=== PATIENT | female | born 1995 | race Caucasian/White ===

== ENCOUNTER 2017-08-18 00:15 | Inpatient (IN) | payer OTHER ==
[~2017-08-18] VITALS: Ht 152.4 cm; Wt 42.6 kg
--- NOTE | 2017-08-18 00:15 | NUR ---
TO BED 2 BIB PARAMEDICS C/O N/V, SYNCOPE. RECEIVE PT AAOX4 NO ACUTE DISTRESS NOTED, RESP EVEN AND UNLABORED. NOTED FOREHEAD ABRASION. PLACE PT ON CARDIAC MONITORING, CONTINUOUS POX. PENDING ER MD SAUL.
[2017-08-18] MEDS ORDERED: ONDANSETRON HCL/PF 4 MG/2 ML VIAL ONE ×3 (00:35→06:14)
[2017-08-18 00:57] LABS: BASOPHILS % (AUTO) 0.1 % (0.0-2.0); EOSINOPHILS # (AUTO) 0.1 /CMM (0.0-0.7); EOSINOPHILS % (AUTO) 0.5 % (0.0-6.0); HEMATOCRIT 43 % (33-45); HEMOGLOBIN 14.6 g/dL (11.5-14.8); LYMPHOCYTES # (AUTO) 1.4 /CMM (0.8-4.8); LYMPHOCYTES % (AUTO) 9.3 % (20.0-44.0); MEAN CORPUSCULAR HEMOGLOBIN 32 PG (26.0-33.0); MEAN CORPUSCULAR HGB CONC 34 g/dl (31.0-36.0); MEAN CORPUSCULAR VOLUME 95 fL (82-100); MONOCYTES % (AUTO) 6.5 % (2.0-12.0); NEUTROPHILS # (AUTO) 12.9 /CMM (1.8-8.9); NEUTROPHILS % (AUTO) 83.6 % (43.0-81.0); PLATELET COUNT (AUTO) 218 /CMM (150-450); RDW COEFFICIENT OF VARIATION 12.7 (11.5-15.0); RED BLOOD CELL COUNT(AUTO) 4.54 MIL/uL (4.0-5.2); WHITE BLOOD COUNT (AUTO) 15.4 K/uL (4.3-11.0)
[2017-08-18] MEDS ORDERED: ONDANSETRON HCL/PF 4 MG/2 ML VIAL IVP ONE (01:00)
[2017-08-18] MEDS ORDERED: IV NS 0.9% 1,000 ML BAG IV ONE (01:00)
[2017-08-18 01:08] LABS: CALCIUM, SERUM 8.5 mg/dL (8.5-10.1); CREATININE 0.8 mg/dL (0.6-1.3); POTASSIUM 4.4 mmol/L (3.5-5.1)
--- NOTE | 2017-08-18 01:16 | NUR ---
pt ambulatory to the bathroom with steady gait noted.
[2017-08-18 01:34] LABS: APPEARANCE,URINE CLEAR (CLEAR); BILIRUBIN,URINE NEGATIVE (NEGATIVE); BLOOD, URINE NEGATIVE Ery/uL (NEGATIVE); COLOR,URINE YELLOW (YELLOW); KETONES,URINE NEGATIVE (NEGATIVE); LEUKOCYTE ESTERASE ,URINE NEGATIVE (NEGATIVE); NITRITE, URINE NEGATIVE (NEGATIVE); PROTEIN,URINE NEGATIVE (NEGATIVE); UGLUCOSE NEGATIVE (NEGATIVE); UROBILINOGEN,URINE 0.2 EU/dL (0.2)
[2017-08-18] MEDS ORDERED: ONDANSETRON HCL/PF 4 MG/2 ML VIAL IV ONE (02:00)
[2017-08-18] MEDS ORDERED: METOCLOPRAMIDE HCL 10 MG/2 ML VIAL ONE (02:24)
[2017-08-18] MEDS ORDERED: METOCLOPRAMIDE HCL 10 MG/2 ML VIAL IV ONE (02:30)
--- NOTE | 2017-08-18 02:37 | NUR ---
M/S 116-2
--- NOTE | 2017-08-18 02:50 | NUR ---
RN INITIAL ASSESSMENT RECEIEVED PATIENT REPORT FROM ED FROM ER. RECEIEVED PATIENT, PATIENT CAME AMBULATORY WALKED IN THE UNIT WITH FAMILY. ADMITTED WITH A DIAGNOSIS OF INTRACTABLE VOMITTING. PATIENT IS ALERT AND ORIENTED X 4 WITH NO SIGNS OF DISTRESS. PATIENT DENIES PAIN. COMPLAINED OF NAUSEA WITH NO EMESIS. NOTED HEPLOCK ON LEFT AC PATENT AND INTACT, FLUSHES WITH NO DIFFICULTY. CALL LIGHT WITHIN REACH. ORIENTED TO THE UNIT AND STAFF. PROVIDED EDUCATION REGARDING DISEASE PROCESS.
--- NOTE | 2017-08-18 03:00 | NUR ---
report called to M/S BARBRA [facility]. pending hospital admission.
--- NOTE | 2017-08-18 03:18 | NUR ---
er spoke to dr. stuart regarding pt admission.
[2017-08-18 03:20] VITALS: BP 99/59
[2017-08-18] MEDS ORDERED: IV D5/ 0.9% NACL 1,000 ML IV PRN (06:00)
[2017-08-18] MEDS ORDERED: ACETAMINOPHEN 650 MG/SUPP.RECT RC PRN (06:00)
[2017-08-18] MEDS ORDERED: HYDROMORPHONE INJ 2 MG/ML DISP.SYRIN IV PRN (06:00)
[2017-08-18] MEDS ORDERED: ONDANSETRON HCL/PF 4 MG/2 ML VIAL IVP PRN (06:00)
[2017-08-18 07:14] LABS: EOSINOPHILS % (AUTO) 0.1 % (0.0-6.0); HEMATOCRIT 43 % (33-45); HEMOGLOBIN 14.4 g/dL (11.5-14.8); LYMPHOCYTES # (AUTO) 0.3 /CMM (0.8-4.8); LYMPHOCYTES % (AUTO) 1.9 % (20.0-44.0); MEAN CORPUSCULAR HEMOGLOBIN 32 PG (26.0-33.0); MEAN CORPUSCULAR HGB CONC 34 g/dl (31.0-36.0); MEAN CORPUSCULAR VOLUME 96 fL (82-100); MONOCYTES # (AUTO) 0.5 /CMM (0.1-1.30); MONOCYTES % (AUTO) 3.6 % (2.0-12.0); NEUTROPHILS # (AUTO) 14.3 /CMM (1.8-8.9); NEUTROPHILS % (AUTO) 94.4 % (43.0-81.0); PLATELET COUNT (AUTO) 205 /CMM (150-450); RDW COEFFICIENT OF VARIATION 12.3 (11.5-15.0); RED BLOOD CELL COUNT(AUTO) 4.49 MIL/uL (4.0-5.2); WHITE BLOOD COUNT (AUTO) 15.1 K/uL (4.3-11.0)
[2017-08-18 07:22] LABS: CALCIUM, SERUM 8.3 mg/dL (8.5-10.1); CREATININE 0.8 mg/dL (0.6-1.3); POTASSIUM 3.9 mmol/L (3.5-5.1)
[2017-08-18 07:27] LABS: ALBUMIN 3.8 g/dL (3.4-5.0); BILIRUBIN,TOTAL 1.3 mg/dL (0.2-1.0); MAGNESIUM 1.6 mg/dL (1.8-2.4); TOTAL PROTEIN, SERUM 6.9 g/dL (6.4-8.2)
[2017-08-18 08:00] VITALS: BP 94/53
--- NOTE | 2017-08-18 08:00 | NUR ---
MS RN NOTE RESTING COMFORTABLY, NOT IN ACUTE DISTRESS ON IVF ORDERED
--- NOTE | 2017-08-18 08:00 | NUR ---
ms rn note resting comfortably in bed , all needs attended, on ivf as ordered, no c\o nausea or vomiting , bed in lowest and locked position , call light within reach , plan of care discussed with Patient
[2017-08-18] MEDS: FAMOTIDINE/PF INJ 20 MG/2 ML VIAL IV SCH ×2 (08:33→20:25)
--- NOTE | 2017-08-18 09:37 | NUR ---
MS RN NOTE PATIENT IN BED . ALL NEEDS ATTENDED , ON IVF ORDERED HL ON LT AC INTACT , NO S\S INFECTION NOTED , BED IN LOWEST AND LOCKED POSITION , NO C\O NAOUSIA NOTED AT THIS TIME , WILL CONT TO MONITOR CLOSELY
--- NOTE | 2017-08-18 09:48 | NUR ---
RN NOTES CHANGE DIET FROM NPO TO CLEAR DIET PER DOCTORS ORDER.
[2017-08-18] MEDS: Magnesium 1GM/D5W 100ML PREMIX 100 ML IV SCH ×2 (10:56→12:02)
[2017-08-18 11:02] VITALS: BP 94/53
--- NOTE | 2017-08-18 14:23 | NUR ---
RN MS NOTE PT COMPLAINED SEVERE HEADACHE. OKAY TO GIVE TYLENOL BY DR. TABOR.
[2017-08-18] MEDS ORDERED: ACETAMINOPHEN 325 MG TABLET PO PRN (14:30)
--- NOTE | 2017-08-18 15:35 | NUR ---
ms rn note drink juice, stated that feels a little nausea, refused Zofran at this time ,will cont to monitor closely
[2017-08-18 16:00] VITALS: BP_SYST 100; BP_SYST 99; BP_DIAS 60; BP_DIAS 70
--- NOTE | 2017-08-18 18:52 | NUR ---
MS RN NOTES CALLED DR. TABOR NOTIFIED ABOUT THE PT. WANTING TO GO HOME, NO N/V NOTED AT THIS TIME, WANT TO TRY REGULAR DIET, Addendum: 08/18/17 at 1856 by MAN FOLEY RN DR. TABOR CALL BACK STATED OKAY TO EAT REGULAR DIET AND FEELS GOOD SHE CAN GO HOME FOLLOW UP WITH PRIMARY CARE DOCTOR NAKIA LOPEZ IN THE AM. OFFER PUDDING AND APPLE SAUCE, WILL MONITOR CLOSELY FOR PT CONDITION. WILL FOLLOW UP.
--- NOTE | 2017-08-18 19:30 | NUR ---
MS RN INITIAL NOTE PT SITTING UP IN BED WITH FAMILY AT BEDSIDE. ON ROOM AIR. A/O X4 AND ABLE TO VERBALIZE NEEDS. BREATHING EVEN, REGULAR AND UNLABORED. IV LAC #18 CLEAN, DRY AND FLUSHING WELL WITH FLUIDS INFUSING. VERBALIZING WANTING TO GO HOME. GAVE SOME FOOD TO ASSESS IF TOLERATING WELL WITHOUT NAUSEA/VOMIT. DISCHARGE ORDER RECEIVED FROM DR. TABOR WITH PREVIOUS RN AND ENDORSED IF PT IS STABLE MAY D/C HOME. WILL CONTINUE TO MONITOR.
--- NOTE | 2017-08-18 21:46 | NUR ---
MS RN NOTE PT REPORTED NO NAUSEA OR VOMIT. PT WANTS TO GO HOME. TOLERATING FOOD WELL. PT TEACHING REGARDING NAUSEA/ VOMIT. PT VERBALIZED UNDERSTANDING. COPY OF TEACHING GIVEN TO PT. INVENTORY LIST SIGNED. INFORMED PT TO F/U WITH PRIMARY IN 1 WEEK. PT PICKED UP BY SIGNIFICANT OTHER AND LEFT THE UNIT IN STABLE CONDITION. VS- T 98.0 P 59, R 18, 95% RA, BP 140/73 AND NO C/O PAIN OR DISCOMFORT.
== END 2017-08-18 21:40 | disposition home or self-care (01) | DRG 641 ==
LOC: ER 00:17 → MEDSG1 03:32
PROVIDERS: ADMIT Internal Medicine; ATTEND Internal Medicine
DX: E86.0 Dehydration (principal); K52.9 Noninfective gastroenteritis and colitis, unspecified; E83.42 Hypomagnesemia; R55 Syncope and collapse
CPT/HCPCS: 36415; 80048-TC; 80053-TC; 81000-TC; 83735-TC; 84100-TC; 84703-TC; 85025-TC; 87081-TC; A4606; J2405; J2765; J3475; J3490; J7030; J7042; Z7610